=== PATIENT | male | born 1965 | race Asian ===

== ENCOUNTER 2017-03-10 19:24 | Emergency (ER) | payer BC, OTHER ==
[~2017-03-10] VITALS: Ht 182.9 cm; Wt 100.0 kg
[2017-03-10 19:27] VITALS: Ht 182.9 cm; Wt 100.0 kg
[2017-03-10] MEDS ORDERED: NITROGLYCERIN (SL) 0.4 MG TAB ONE (19:31)
[2017-03-10] MEDS ORDERED: SOD CHLORIDE 0.9% 100 ML ONE (19:39)
[2017-03-10] MEDS ORDERED: IODIXANOL LOCM 50 ML BTL ONE (19:39)
[2017-03-10] MEDS ORDERED: IODIXANOL LOCM 100 ML BTL ONE (19:39)
[2017-03-10] MEDS ORDERED: morphine 4 MG/ML VIAL IV STA ×2 (19:40→21:42)
[2017-03-10 19:43] LABS: ADD SCAN DIFF NO
[2017-03-10 19:44] LABS: BASOPHIL # 0.1 10^3/ul (0.0-0.1); BASOPHILS % 0.6 % (0.0-2.0); EOSINOPHILS # 0.3 10^3/ul (0.0-0.5); EOSINOPHILS % 3.2 % (0.0-7.0); HEMATOCRIT 46.8 % (42.0-52.0); HEMOGLOBIN 15.1 g/dl (14.0-18.0); LYMPHOCYTES # 4.7 10^3/ul (0.8-2.9); LYMPHOCYTES % 48.5 % (15.0-51.0); MEAN CORPUSCULAR HEMOGLOBIN 30.2 pg (29.0-33.0); MEAN CORPUSCULAR HGB CONC 32.3 g/dl (32.0-37.0); MEAN CORPUSCULAR VOLUME 93.6 fl (82.0-101.0); MEAN PLATELET VOLUME 10.1 fl (7.4-10.4); MONOCYTE # 0.6 10^3/ul (0.3-0.9); MONOCYTES % 5.9 % (0.0-11.0); NEUTROPHILS % 41.2 % (39.0-77.0); PLATELET COUNT 165 10^3/UL (140-415); RED CELL DISTRIBUTION WIDTH 12.2 % (11.5-14.5); WHITE BLOOD COUNT 9.8 10^3/ul (4.8-10.8)
--- NOTE | 2017-03-10 19:53 | RADRPT ---
PROCEDURE: XR Chest. CLINICAL INDICATION: Chest pain. TECHNIQUE: Portable AP semi erect view of the chest was obtained. COMPARISON: None. FINDINGS: The cardiomediastinal silhouette is borderline enlarged. The lungs are clear. There is no evidence for pleural effusion, pneumothorax or pulmonary vascular congestion. The osseous structures are in tact with no evidence for acute abnormality. RPTAT:HJJR IMPRESSION: Borderline cardiac silhouette enlargement without evidence for acute intrathoracic pathology. Physician Antony Date Time Electronically viewed and signed by Hunter Ledbetter Physician on 03/10/2017 19:53 JR/
[2017-03-10 20:02] LABS: INR 1.05; PROTIME 13.7 Sec (12.2-14.2); PT RATIO 1.1
[2017-03-10 20:03] LABS: PARTIAL THROMBOPLASTIN TIME 28.6 Sec (25.0-35.0)
[2017-03-10 20:12] LABS: ALANINE AMINOTRANSFERASE 44 IU/L (13-69); ALBUMIN/GLOBULIN RATIO 1.78; ALKALINE PHOSPHATASE 75 IU/L (42-121); ANION GAP 23 (8-16); ASPARTATE AMINO TRANSFERASE 31 IU/L (15-46); BILIRUBIN,INDIRECT 0.4 mg/dl (0-1.1); BILIRUBIN,TOTAL 0.4 mg/dl (0.2-1.3); BLOOD UREA NITROGEN 16 mg/dl (7-20); CALCIUM 9.8 mg/dl (8.4-10.2); CARBON DIOXIDE 18 mmol/L (21-31); CHLORIDE 104 mmol/L (97-110); CREATININE 1.77 mg/dl (0.61-1.24); GLUCOSE 155 mg/dl (70-220); POTASSIUM 3.6 mmol/L (3.5-5.1); SODIUM 141 mmol/L (135-144); TOTAL PROTEIN 7.8 g/dl (6.1-8.1)
[2017-03-10 20:25] LABS: TROPONIN-I < 0.012 ng/ml (0.00-0.12)
[2017-03-10] MEDS ORDERED: niCARdipine-D5W 0.1MG/ML DRIP 200 ML IV SCH (20:30)
[2017-03-10] MEDS ORDERED: LABETALOL HCL 20MG INJ IV ONE (20:30)
--- NOTE | 2017-03-10 20:38 | ERA ---
ER Documentation Chief Complaint Date/Time DATE: 03/10/17 TIME: 20:26 Chief Complaint BIBA C/O CHEST PRESSURE AND RIGHT LEG NUMBNESS AND PAIN HPI 52-year-old male with history of hypertension presents the ED via RA complaining of acute onset of severe, generalized, nonradiating sharp and pressure-like chest pain and right leg pain and numbness. Diaphoresis with mild shortness of breath and nausea but no vomiting. Denies abdominal pain or back pain. No headache, neck pain or visual changes. No URI symptoms or cough. No fevers or chills. ROS All systems reviewed and are negative except as per history of present illness. Allergies Allergies: Coded Allergies: shellfish derived (Verified Allergy, Unknown, 03/10/17) PMhx/Soc Reviewed in chart. As per HPI per Medical and Surgical Hx: pt denies Surgical Hx History of Surgery: No Anesthesia Reaction: No Hx Neurological Disorder: No Hx Respiratory Disorders: No Hx Cardiac Disorders: Yes (Hypertension) Hx Psychiatric Problems: No Hx Miscellaneous Medical Probl: No Hx Alcohol Use: Yes Hx Substance Use: No Hx Tobacco Use: No Smoking Status: Never smoker FmHx No stroke, MT or sudden cardiac . Physical Exam Vitals Vital Signs Date Time Temp Pulse Resp B/P Pulse Ox O2 Delivery O2 Flow Rate FiO2 03/10/17 21:30 98.0 68 17 123/55 97 Nasal Cannula 4.0 03/10/17 20:51 71 19 116/54 100 Nasal Cannula 4.0 03/10/17 20:30 63 8 157/58 100 Nasal Cannula 4.0 03/10/17 20:00 68 26 170/64 100 Nasal Cannula 4.0 03/10/17 19:41 Nasal Cannula 4 03/10/17 19:27 97.7 78 20 110/80 98 Physical Exam Const: Alert, severe distress. Head: Atraumatic Eyes: Normal Conjunctiva ENT: Normal External Ears, Nose and Mouth. Neck: Full range of motion. Nontender. Resp: Breath sounds equal and clear to auscultation bilaterally Cardio: Regular rate and rhythm, no murmurs Abd: Soft, non tender, non distended. Normal bowel sounds. No masses or abnormal pulsations. Skin: No petechiae or rashes Back: No midline or flank tenderness Ext: No cyanosis, or edema. Right upper extremity radial pulses 4+. 1+ femoral pulses with no palpable popliteal, dorsalis pedis or posterior tibial. Neur: Awake and alert. No focal deficit observed. Psych: Normal Mood and Affect Result Diagram: 03/10/17192903/10/171929 Results 24 hrs Laboratory Tests Test 03/10/17 19:30 White Blood Count 9.810^3/ul Red Blood Count 5.0010^6/ul Hemoglobin 15.1g/dl Hematocrit 46.8% Mean Corpuscular Volume 93.6fl Mean Corpuscular Hemoglobin 30.2pg Mean Corpuscular Hemoglobin Concent 32.3g/dl Red Cell Distribution Width 12.2% Platelet Count 15243^3/UL Mean Platelet Volume 10.1fl Neutrophils % 41.2% Lymphocytes % 48.5% Monocytes % 5.9% Eosinophils % 3.2% Basophils % 0.6% Nucleated Red Blood Cells % 0.0/100WBC Neutrophils # 4.010^3/ul Lymphocytes # 4.710^3/ul Monocytes # 0.610^3/ul Eosinophils # 0.310^3/ul Basophils # 0.110^3/ul Nucleated Red Blood Cells # 0.010^3/ul Prothrombin Time 13.7Sec Prothrombin Time Ratio 1.1 INR International Normalized Ratio 1.05 Activated Partial Thromboplast Time 28.6Sec Sodium Level 141mmol/L Potassium Level 3.6mmol/L Chloride Level 104mmol/L Carbon Dioxide Level 18mmol/L Anion Gap 23 Blood Urea Nitrogen 16mg/dl Creatinine 1.77mg/dl Glucose Level 155mg/dl Calcium Level 9.8mg/dl Total Bilirubin 0.4mg/dl Direct Bilirubin 0.00mg/dl Indirect Bilirubin 0.4mg/dl Aspartate Amino Transf (AST/SGOT) 31IU/L Alanine Aminotransferase (ALT/SGPT) 44IU/L Alkaline Phosphatase 75IU/L Troponin I < 0.012ng/ml Total Protein 7.8g/dl Albumin 5.0g/dl Globulin 2.80g/dl Albumin/Globulin Ratio 1.78 Current Medications Medications (Trade) Dose Ordered Sig/Jo-Ann Route PRN Reason Start Time Stop Time Status Last Admin Dose Admin IV Flush 10 ml 10 ml STK-MED ONCE .ROUTE 03/10/17 19:39 03/10/17 19:40 DC 03/10/17 20:18 Sodium Chloride (NS) 100 ml @ ud STK-MED ONCE .ROUTE 03/10/17 19:39 03/10/17 19:40 DC 03/10/17 20:18 Iodixanol (Visipaque Locm) 100 ml STK-MED ONCE .ROUTE 03/10/17 19:39 03/10/17 19:40 DC 03/10/17 20:19 Iodixanol (Visipaque Locm) 50 ml STK-MED ONCE .ROUTE 03/10/17 19:39 03/10/17 19:40 DC 03/10/17 20:19 Morphine Sulfate (morphine) 4 mg ONCE STAT IV 03/10/17 19:40 03/10/17 19:41 DC 03/10/17 19:43 Labetalol HCl 20 mg 20 mg ONCE ONCE IV 03/10/17 20:30 03/10/17 20:31 DC 03/10/17 20:17 Nicardipine HCl 50 mg/Dextrose 500 ml @ 50 mls/hr TITRATE IV 03/10/17 20:30 03/10/17 22:17 DC Nicardipine HCl (Cardene Iv) 200 ml @ 50 mls/hr ONCE IV 03/10/17 20:30 03/10/17 22:17 DC 03/10/17 20:35 Hydromorphone HCl (Dilaudid) 1 mg ONCE STAT IV 03/10/17 20:39 03/10/17 20:40 DC 03/10/17 20:43 Ondansetron HCl (Zofran Inj) 4 mg STK-MED ONCE .ROUTE 03/10/17 21:13 03/10/17 21:14 DC Morphine Sulfate (morphine) 4 mg ONCE STAT IV 03/10/17 21:42 03/10/17 21:43 Cancel PROCEDURE: CT angiogram of the chest, abdomen and pelvis and bilateral runoff. CLINICAL INDICATION: Chest pain. Arterial insufficiency. Evaluate dissection. TECHNIQUE: CT angiogram of the chest, abdomen and pelvis with bilateral runoff was performed on the [employer] volumetric [address] scanner . The patient was scanned after administration of 130 cc of Visipaque 320 intravenous contrast. Oral contrast was also administered. 3-D sagittal and coronal reformatted images were obtained from the axial source images. 3-D MIP images were also reviewed. One or more of the following dose reduction techniques were used: Automated exposure control. Adjustment of the mA and/or kV according to patient size. Use of iterative reconstruction technique. DLP 1660.10 mGycm. CTDI vol 20.66, 13.15, and 8.19 mGy COMPARISON: None. FINDINGS: Vascular: There is type A aortic dissection involving the aortic root extending into the origin of the left common carotid and left subclavian arteries. Right and left coronary arteries takeoff of the true lumen. There is near complete occlusion of the visualized proximal left common carotid artery. There is normal opacification of the left subclavian artery. Right innominate artery takes off of the true lumen. There is aneurysmal dilatation of the aortic root measures up to 5.2 cm. Celiac artery takes off of the false lumen. There is occlusion of the celiac artery approximately 1.8 cm distal to its origin. There is normal opacification of the distal branches of the celiac artery. SMA takes off of the true lumen. Right renal artery takes off of the true and false lumen. Left renal artery takes off of the false lumen. There is near complete thrombosis of the true lumen in the infrarenal abdominal aorta. There is occlusion of proximal ANUPAMA. Dissection flap extends into the bilateral iliac arteries with near complete thrombosis of the true lumen on the right. There is opacification of the true and false lumens of the left common iliac artery extending into the internal iliac artery. There is occlusion of the left external iliac artery with reconstitution about the left inguinal ligament. There is slightly less dense opacification of the right common femoral artery. Both common femoral arteries and proximal SMA are opacified. There is no adequate opacification of the distal SFA, popliteal and sbytc-bcz-kudm arteries due to phase of the study. CT chest: Lungs are clear. There are no pleural effusions or pneumothoraces. No mediastinal or hilar lymphadenopathy is noted. There is age indeterminate miles superior endplate compression fracture of T7. CT abdomen: The lung bases are clear. The liver, spleen, adrenal glands, pancreas, gallbladder and kidneys are normal. There is no ascites or retroperitoneal adenopathy. There is no bowel obstruction. CT pelvis: The urinary bladder is normal. No pelvic masses or pelvic lymphadenopathy seen. There is no free fluid. The bony pelvis is intact. A call report was made to Dr. MALIKA Rodriguez at 03/10/2017 8:36:27 PM following completion of the examination. IMPRESSION: 1. Type A aortic dissection extends into the left common carotid and left subclavian arteries with near complete occlusion of the left common carotid artery. 2. Aneurysmal dilatation of the aortic root measures up to 5.2 cm. Both right and left coronary arteries takeoff of the true lumen. 3. Celiac artery takes off of the false lumen. Occlusion of the celiac artery proximally with good opacification of the distal branches through collaterals. 4. SMA takes off of the true lumen. 5. Right renal artery takes off of the true and false lumen. Dissection flap extends along the main right renal artery. 6. Left renal artery takes off of the false lumen. 7. Near complete thrombosis of the true lumen in the infrarenal abdominal aorta. 8. Occlusion of the proximal ANUPAMA. 9. Dissection flap extends into the bilateral common iliac arteries with complete thrombosis of the true lumen on the right. Opacification of the both true and false lumens in the left common iliac artery. The dissection flap extends into the left internal iliac artery. 10. Occlusion of the left external iliac artery with distal reconstitution above the inguinal ligament. 11. Slightly less enhancement of the right common femoral artery likely related to complete thrombosis of the true lumen at the right common iliac artery. 12. Both common femoral and proximal SMA are patent. 13. Inadequate opacification of the distal SFA, popliteal arteries and below- the-knee arteries for evaluation. Chest: 1. No mass, lymphadenopathy or acute infiltrates. Abdomen and pelvis: 1. No mass, lymphadenopathy or acute inflammatory changes. RPTAT: HHO .Idalia Robles MD, MD Date Time Electronically viewed and signed by .Idalia Robles MD, MD on 03/10/2017 20:48 .O/ EKG: Time: 19:29. Sinus rhythm. Ventricular rate 66, normal [place] and QRS intervals. No acute ST segment elevation or depression. No axis deviation or ectopy. EP Impression: Normal EKG Procedures/MDM DOCUMENTS REVIEWED: ED nurse, no prior records MEDICAL DECISION MAKIN-year-old male with history of hypertension presents the ED via RA complaining of acute onset of severe, generalized, nonradiating sharp and pressure-like chest pain and right leg pain and numbness. CT confirms a type A aortic dissection involving the left subclavian , left carotid extending down into the abdominal aorta and iliacs as described. Aggressive anti impulsive blood pressure management initiated with labetalol and Cardene to maintain BP systolic < 110. Dr Phelan paged at 20:15. Immediate attempts to transfer to a higher level of care initiated. Accepted for transfer to [facility] by Dr. Schmid at 21:02. [facility] transport not available hence patient transported by [facility] paramedics in critical condition. At the patient's request, findings discussed with PMD, Dr Bermudez, , who will assist with coordination of care. Counseled patient and family regarding diagnosis, diagnostic results and plan for transfer. Critical Care Note: Treatments/Evaluations: Close monitoring and treatment of unstable vital signs, cardiorespiratory, and neurologic status, while maintaining tight balance of fluid, respiratory, and cardiac interventions. This time includes discussing the case with the patient and the patient's family. This time does not include all procedures stated elsewhere in this record. This time also includes reviewing old records, labs and radiological studies. This time includes examining and re-examining the patient. Additionally, this time also includes arranging transfer to a higher level of care. Total critical care time not including other separately reportable procedures: 60 minutes Departure Diagnosis: Primary Impression: Type 1 dissection of thoracic aorta Additional Impressions: Chest pain Qualified Code: R07.9 - Chest pain, unspecified type Dissecting aneurysm of thoracic aorta, Edison type A Condition: Critical ARMIN DALY MD Mar 10, 2017 20:37
[2017-03-10] MEDS ORDERED: HYDROmorphONE 1 MG/ML SYG IV STA (20:39)
--- NOTE | 2017-03-10 20:49 | RADRPT ---
PROCEDURE: CT angiogram of the chest, abdomen and pelvis and bilateral runoff. CLINICAL INDICATION: Chest pain. Arterial insufficiency. Evaluate dissection. TECHNIQUE: CT angiogram of the chest, abdomen and pelvis with bilateral runoff was performed on [facility] [employer] volumetric [address] scanner . The patient was scanned after administration of 130 cc of Vis ipaque 320 intravenous contrast. Oral contrast was also administered. 3-D sagittal and coronal ref ormatted images were obtained from the axial source images. 3-D MIP images were also reviewed. One or more of the following dose reduction techniques were used: Automated exposure control. Adjustment of the mA and/or kV according to patient size. Use of iterative reconstruction technique. DLP 1660.10 mGycm. CTDI vol 20.66, 13.15, and 8.19 mGy COMPARISON: None. FINDINGS: Vascular: There is type A aortic dissection involving the aortic root extending into the origin of the left co mmon carotid and left subclavian arteries. Right and left coronary arteries takeoff of the true lume n. There is near complete occlusion of the visualized proximal left common carotid artery. There i s normal opacification of the left subclavian artery. Right innominate artery takes off of the true lumen. There is aneurysmal dilatation of the aortic root measures up to 5.2 cm. Celiac artery takes off of the false lumen. There is occlusion of the celiac artery approximately 1 .8 cm distal to its origin. There is normal opacification of the distal branches of the celiac arter y. SMA takes off of the true lumen. Right renal artery takes off of the true and false lumen. Left renal artery takes off of the false lumen. There is near complete thrombosis of the true lumen in the infrarenal abdominal aorta. There is occ lusion of proximal ANUPAMA. Dissection flap extends into the bilateral iliac arteries with near complete thrombosis of the true lumen on the right. There is opacification of the true and false lumens of the left common iliac ar mayra extending into the internal iliac artery. There is occlusion of the left external iliac artery with reconstitution about the left inguinal ligament. There is slightly less dense opacification o f the right common femoral artery. Both common femoral arteries and proximal SMA are opacified. Th ere is no adequate opacification of the distal SFA, popliteal and [id number] arteries due to pha se of the study. CT chest: Lungs are clear. There are no pleural effusions or pneumothoraces. No mediastinal or hilar lymphade nopathy is noted. There is age indeterminate miles superior endplate compression fracture of T7. CT abdomen: The lung bases are clear. The liver, spleen, adrenal glands, pancreas, gallbladder and kidneys are normal. There is no ascites or retroperitoneal adenopathy. There is no bowel obstruction. CT pelvis: The urinary bladder is normal. No pelvic masses or pelvic lymphadenopathy seen. There is no free fl uid. The bony pelvis is intact. A call report was made to Dr. MALIKA Rodriguez at 03/10/2017 8:36:27 PM following completion of the e xamination. IMPRESSION: 1. Type A aortic dissection extends into the left common carotid and left subclavian arteries with near complete occlusion of the left common carotid artery. 2. Aneurysmal dilatation of the aortic root measures up to 5.2 cm. Both right and left coronary ar teries takeoff of the true lumen. 3. Celiac artery takes off of the false lumen. Occlusion of the celiac artery proximally with good opacification of the distal branches through collaterals. 4. SMA takes off of the true lumen. 5. Right renal artery takes off of the true and false lumen. Dissection flap extends along the main right renal artery. 6. Left renal artery takes off of the false lumen. 7. Near complete thrombosis of the true lumen in the infrarenal abdominal aorta. 8. Occlusion of the proximal ANUPAMA. 9. Dissection flap extends into the bilateral common iliac arteries with complete thrombosis of the true lumen on the right. Opacification of the both true and false lumens in the left common iliac artery. The dissection flap extends into the left internal iliac artery. 10. Occlusion of the left external iliac artery with distal reconstitution above the inguinal ligam ent. 11. Slightly less enhancement of the right common femoral artery likely related to complete thrombo sis of the true lumen at the right common iliac artery. 12. Both common femoral and proximal SMA are patent. 13. Inadequate opacification of the distal SFA, popliteal arteries and [id number] arteries for evaluation. Chest: 1. No mass, lymphadenopathy or acute infiltrates. Abdomen and pelvis: 1. No mass, lymphadenopathy or acute inflammatory changes. RPTAT: HHO .Idalia Robles MD, MD Date Time Electronically viewed and signed by .Idalia Robles MD, MD on 03/10/2017 20:48 .O/
[2017-03-10] MEDS ORDERED: ONDANSETRON 4 MG INJ ONE (21:13)
[2017-03-10 21:30] VITALS: BP 123/55; PULSE 68; RESP 17; TEMP 98
== END 2017-03-10 22:17 | disposition short-term general hospital (02) ==
LOC: E/R 19:24
DX: I71.01 Dissection of thoracic aorta (principal); I71.2 Thoracic aortic aneurysm, without rupture; R40.2142 Coma scale, eyes open, spontaneous, at arrival to emergency department; R40.2252 Coma scale, best verbal response, oriented, at arrival to emergency department; R40.2362 Coma scale, best motor response, obeys commands, at arrival to emergency department; I10 Essential (primary) hypertension
CPT/HCPCS: 36415; 71010; 71275; 75635; 80053; 84484; 85025; 85610; 85730; 93005; 96374; 96375; 99291; J1170; J2270; Q9967; J2405